=== PATIENT | female | born 1965 | race Caucasian/White ===

== ENCOUNTER 2025-06-27 14:30 | Outpatient (RCR) | payer OTHER, SELFPAY | END 2025-07-15 15:05 | disposition home or self-care (01) | PROVIDERS: PCP Family Medicine; Visit Provider Family Medicine | DX: M54.41 Lumbago with sciatica, right side (principal); G89.29 Other chronic pain; M54.16 Radiculopathy, lumbar region; M25.551 Pain in right hip; Z51.89 Encounter for other specified aftercare | CPT/HCPCS: 97110; 97140; 97161 ==